=== PATIENT | male | born 1975 | race Hispanic/Latino ===

== ENCOUNTER 2020-07-11 14:02 | Emergency (ER) | payer OTHER, SELFPAY | END 2020-07-11 14:25 | disposition home or self-care (01) | LOC: NAV ERS 14:02 | DX: T75.4XXA Electrocution, initial encounter (principal); I10 Essential (primary) hypertension; F17.220 Nicotine dependence, chewing tobacco, uncomplicated; W86.0XXA Exposure to domestic wiring and appliances, initial encounter | CPT/HCPCS: 93005 ==